=== PATIENT | female | born 1990 | race Caucasian/White ===

== ENCOUNTER → 2017-10-12 | Outpatient (CLI) | payer OTHER ==
--- NOTE | 2017-10-12 09:06 | DIAGNOSTIC IMAGING REPORT ---
RIGHT CLAVICLE 3 VIEWS CLINICAL HISTORY: CLAVICLE FX, PAIN COMPARISON: None. DISCUSSION: There is an internally fixated right clavicular fracture. There is a superior metallic plate and 6 screws. No acute fractures are visualized. The acromioclavicular and coracoclavicular distances appear normal. IMPRESSION: Internally fixated right clavicular fracture. No acute findings Electronically signed by: Herrera Vazquez M.D. 10/12/2017 9:04 AM Dictated Date/Time: 10/12/2017 9:03 AM
== END | disposition home or self-care (01) ==
LOC: C.RAD1850 08:50
PROVIDERS: ATTEND Orthopaedic Surgery
DX: Z01.818 Encounter for other preprocedural examination (principal); S42.001D Fracture of unspecified part of right clavicle, subsequent encounter for fracture with routine healing; X58.XXXD Exposure to other specified factors, subsequent encounter; Z98.890 Other specified postprocedural states